=== PATIENT | male | born 1995 | race Caucasian/White ===

== ENCOUNTER 2019-02-17 12:58 | Emergency (ER) | payer BC ==
[2019-02-17 13:18] VITALS: BP 127/71
[2019-02-17] MEDS ORDERED: Tetracaine 0.5% OPTH.SOL 4 ML* 1 DROP BTL RIGHT EYE ONE (13:36)
--- NOTE | 2019-02-17 13:55 | UC ---
Eye Complaint HPI - HPI Summary HPI Summary: Patient is a 23 year old gentleman, who present today to the urgent care with sudden onset of right eye pain that started yesterday afternoon. Significantly progressed since yesterday to the point that he is not able to open his right eye today. There is significant burning, increased watering and pain. He denies any sick contact,foreign body sensation or use of contact lenses No headaches, fever or chills. There is some associated nausea and dizziness but denies any weakness or altered sensation in any of his extremities. - History of Current Complaint Chief Complaint: UCRespiratory Stated Complaint: RIGHT EYE COMPLAINT Time Seen by Provider: 02/17/19 13:20 Hx Obtained From: Patient Pain Intensity: 8 - Allergies/Home Medications Allergies/Adverse Reactions: Allergies Allergy/AdvReac Type Severity Reaction Status Date / Time No Known Allergies Allergy Verified 02/17/19 13:12 Home Medications: Home Medications NK [No Home Medications Reported] 02/17/19 [History Confirmed 02/17/19] PMH/Surg Hx/FS Hx/Imm Hx - Additional Past Medical History Additional PMH: PMH: bradycardia PSH: appendectomy Social history: uses smokeless tobacco, no alcohol or substance use. Works at [employer]. Family history: Negative/ noncontributory Previously Healthy: Yes - Surgical History Surgical History: Yes Surgery Procedure, Year, and Place: APPENDIX - Social History Alcohol Use: None Substance Use Type: None Smoking Status (MU): Never Smoked Tobacco Type: Smokeless Tobacco Review of Systems All Other Systems Reviewed And Are Negative: Yes Constitutional: Positive: Negative Skin: Positive: Negative Eyes: Positive: Blurred Vision, Drainage, Eye Redness, Photophobia ENT: Positive: Negative Respiratory: Positive: Negative Cardiovascular: Positive: Negative Gastrointestinal: Positive: Negative Genitourinary: Positive: Negative Motor: Positive: Negative Neurovascular: Positive: Negative Musculoskeletal: Positive: Negative Neurological: Positive: Negative. Negative: Headache, Weakness Psychological: Positive: Negative Is Patient Immunocompromised?: No Physical Exam - Summary Physical Exam Summary: Physical Exam: Const: Appears well. No signs of apparent distress present. Alert and oriented x 3. Musculo: Walks with a normal gait. Head/Face: Atraumatic, normocephalic on inspection. Eyes: Right eye: Difficult to open, instilled tetracaine eyedrops and reexamined with conjunctival erythema, sluggish pupil. No foreign body identified, slight clear discharge and increased lacrimation.(Limited exam due to patient's inability to keep the eye open despite the tetracaine eyedrops) ENT: Hearing normal Respiratory: Respirations are unlabored. CVS: Regular rate and Rhythm, S1S2 normal , no murmurs identified. Extremities: Peripheral circulation is grossly normal. Pulses 2+ Abdomen : Soft non tender , nondistended , Bowel sounds present . No guarding , rebound tenderness or rigidity noted. Skin: No lesions or rash located on the upper extremities or on the lower extremities. Neuro: Cranial nerves , intact, except for second, fourth and sixth , motor and sensory intact. DTR Intact bilaterally. Mood is normal. Affect is normal. GCS 15 [facility] prehospital stroke scale is negative Triage Information Reviewed: Yes Vital Signs: Initial Vital Signs Temp 97.6 F 02/17/19 13:13 Pulse 53 02/17/19 13:13 Resp 16 02/17/19 13:13 BP 127/71 02/17/19 13:13 Pulse Ox 99 02/17/19 13:13 Vital Signs Reviewed: Yes Eye Complaint Course/Dx - Course Course Of Treatment: During the visit today, he had no relief with tetracaine eyedrops and continued to have significant pain and was not able to open his right eye. Given his dizziness, CT scan head was done to rule out any intracranial process. CT head was read as Mild paranasal sinus mucosal disease in this otherwise normal CT of the brain. Patient needs additional testing, thus ER transfer advised .Plan to have him seen in ER at [facility] and consult with ophthalmology. I called the transfer center and spoke to Yue and later spoke to nurse Arreaga advised provider of the history, physical examination, and duration of illness and labs/imaging so far and the need for definitive management. She advised me that ophthalmology will be available in the ER to evaluate him further. We discussed the findings and further plan and also the option of transfer in ambulance.His will drive him to the ER at [address] [place] [address]. Patient expressed understanding . - Differential Dx/Diagnosis Provider Diagnosis: Glaucoma Discharge - Sign-Out/Discharge Documenting (check all that apply): Patient Departure All imaging exams completed and their final reports reviewed: Yes - Discharge Plan Condition: Stable Disposition: HOME-RECOMMEND TO ED Patient Education Materials: Blurred Vision (ED), Eye Pain (ED) Referrals: Tram Montiel MD [Primary Care Provider] - Additional Instructions: Plan to have him seen in ER at [facility] and consult with ophthalmology. I called the transfer center and spoke to Yue and later spoke to nurse Arreaga . She advised me that ophthalmology will be available in the ER to evaluate him further. ER at [address] [place] [address]. . - Billing Disposition and Condition Condition: STABLE Disposition: Home-Recommend to ED
== END 2019-02-17 14:58 | disposition home health service (06) ==
LOC: UCCORT 12:58
DX: H40.9 Unspecified glaucoma (principal)
CPT/HCPCS: 70450; 99212; A9270-GY; G0463